=== PATIENT | male | born 1945 | race Caucasian/White ===

== ENCOUNTER 2023-01-23 13:22 | Emergency (ER) | payer MEDICARE, BC, SELFPAY ==
[2023-01-23 13:22] VITALS: BP 178/95; PULSE 87; RESP 20; TEMP 36.8; O2SAT 98
--- NOTE | 2023-01-23 13:23 | ED.EXTPRO ---
HPI - Extremity Problem General Chief complaint: Extremity Injury, Lower Stated complaint: L ankle pain Time Seen by Provider: 01/23/23 13:23 Source: patient and RN notes reviewed Mode of arrival: ambulatory Limitations: no limitations History of Present Illness Complaint: extremity pain Onset (ago): day(s) (2) Pain Consistency: constant Location: left and lower extremity Quality: aching, dull and constant Radiation: none Relieving factors: rest Exacerbating factors: range of motion, weight bearing, walking and palpation Associated symptoms: denies other symptoms Context: history of gout Related Data Allergies Allergy/AdvReac Type Severity Reaction Status Date / Time No Known Allergies Allergy Verified 01/23/23 13:27 Review of Systems Review of Systems: All systems reviewed & are unremarkable except as noted in HPI and below Constitutional: Constitutional: Denies chills and Denies fever(s) PMFSH Past Medical History Medical History (Updated 01/23/23 @ 14:05 by Massimo Ayers MD) Hypertension Surgical History Surgical History (Updated 01/23/23 @ 13:33 by Massimo Ayers MD) H/O prostatectomy Social History Social History (Updated 01/23/23 @ 13:34 by Massimo Ayers MD) Smoking status: Never smoker Exam Const: General: healthy appearing, no acute distress and alert Nutritional Appearance: well nourished Orientation/consciousness: patient oriented x3 Limitations: no limitations HENMT: Head: normal to inspection Ears: external ears normal Face/Nose/Sinus: Normal external nose present Face and sinus: normal facial exam Mouth: Yes moist mucous membranes Eyes: Conjunctivae: conjunctivae normal Pupils: Equal, round and reactive pupils present EOM: EOMs intact bilaterally Neck: Neck: normal visual inspection Resp: Effort & Inspection: normal respiratory effort Auscultation: clear to auscultation bilaterally Cardio: Rate: regular rate Rhythm: regular rhythm GI: GI Palp: Yes Soft to palpation and No Tenderness to palpation present (GI) Auscultation: normal bowel sounds Back/Spine/Pelvis: Cervical Spine: cervical ROM normal Thoracic/Lumbar Spine: thoraco-lumbar ROM normal Skin: General skin exam: normal color Rashes: no rashes Neuro: General: patient oriented x3, moves all extremities, no focal motor deficits and CN's II-XI intact bilaterally Speech: normal speech Gait exam (Neuro): Normal gait present Extrem: General: normal exam except as noted and no clubbing, cyanosis or edema Left lower extremity: ankle Details: tenderness Location: anteromedially, swelling Details: medially and abnormal ROM Details: pain with active ROM Details: with inversion and with eversion and pain with passive ROM Details: with inversion and with eversion Psych: Mental Status: mental status grossly normal Affect: normal affect Attitude: cooperative MDM - Extremity (Nontraumatic) Differential Diagnosis Differential diagnosis: Likely gout, cellulitis, superficial thrombophlebitis and other ( tendinitis, acute renal failure, electrolyte abnormality, anemia) Discharge Plan Discharge Clinical Impression: Acute ankle pain Qualifiers: Laterality: left Qualified Code(s): M25.572 - Pain in left ankle and joints of left foot Patient Disposition: Home, Self-Care Condition: Stable Instructions: Arthralgia (ED) Additional Instructions: can use ice and elevate. Follow-up with your primary care physician if not improved in the next 3-5 days. Prescriptions: New indomethacin 50 mg capsule 50 mg PO TID 10 Days Qty: 30 0RF Rx Instructions: administer with food or milk Follow-up/Referrals: UNKNOWN,DOCTOR [Primary Care Provider] - Time of Disposition: 14:06
[2023-01-23 13:44] LABS: Hematocrit 44.8 % (37.0-46.0); Hemoglobin 15.1 g/dL (12.4-15.3); Mean Corpuscular HGB Conc 33.7 g/dL (32.0-36.0); Mean Corpuscular Hemoglobin 37.3 pg (27.0-31.0); Mean Corpuscular Volume 110.6 fL (78.0-102.0); Mean Platelet Volume 11.4 fl (8.7-11.0); Platelet Count Result 350 K/mm3 (150-420); Red Blood Count 4.05 M/mm3 (4.70-6.10); Red Cell Distribution Width 13.1 % (11.6-14.4); White Blood Count 7.6 K/mm3 (4.8-10.8)
[2023-01-23 14:01] LABS: Alanine Aminotransferase 21 U/L (16-63); Albumin Level 3.3 g/dL (3.4-5.0); Alkaline Phosphatase 72 U/L (46-116); Anion Gap 10 mmol/L (8-16); Aspartate Amino Transferase 21 U/L (15-37); Band Neutrophils Percent 0 % (0-6); Basophils Percent Manual 0 % (0-1); Bilirubin,Total 0.7 mg/dL (0.00-1.00); Blood Urea Nitrogen 15 mg/dL (7-18); CRP 3.3 mg/dL (0.0-0.9); Calcium 8.4 mg/dL (8.5-10.1); Carbon Dioxide 26 mmol/L (21-32); Chloride 107 mmol/L (98-108); Eosinophils Percent Manual 0 % (1-6); Estimated CRCL calculation 51 ml/min; Estimated Glomerular Filt Rate > 60; Glucose 110 mg/dL (70-99); Lymphocytes Absolute Manual 3.11 K/mm3 (1.1-4.5); Lymphocytes Percent Manual 41 % (18-44); Magnesium 1.9 mg/dL (1.8-2.4); Monocytes Absolute Manual 2.66 K/mm3 (0.1-0.90); Monocytes Percent Manual 35 % (3-9); Neutrophils Absolute Manual 1.82 K/mm3 (1.3-6.7); Neutrophils Percent Manual 24 % (46-73); Osmolality Calculated 297 mOsm/kg (285-295); Platelet Estimate Adequate (Adequate); Potassium 3.8 mmol/L (3.5-5.1); Sodium 143 mmol/L (136-145); Total Cells Counted 100; Total Protein 7.2 g/dL (6.4-8.2); Uric Acid 4.6 mg/dL (3.5-7.2)
[2023-01-23 14:21] VITALS: BP 152/82; PULSE 72; RESP 20; TEMP 36.7; O2SAT 93
== END 2023-01-23 14:22 | disposition home or self-care (01) ==
PROVIDERS: Emergency Provider Emergency Medicine
DX: M25.572 Pain in left ankle and joints of left foot (principal); I10 Essential (primary) hypertension
CPT/HCPCS: 36415; 80053; 83735; 84550; 85025; 86140; 99283